=== PATIENT | female | born 1995 | race Caucasian/White ===

== ENCOUNTER → 2024-10-25 13:20 | Outpatient (CLI) | payer OTHER, SELFPAY ==
[2024-10-25 20:26] LABS: HEMOLYSIS 23 (0-50); Iron 96 ug/dL (37-170)
[2024-10-25 20:27] LABS: Add Manual Diff / Slide Review NO; Basophils Absolute Auto 0 /uL (0-100); Basophils Percent Auto 0.6 % (0-2); Eosinophils Absolute Auto 100 /uL (0-450); Eosinophils Percent Auto 1.2 % (2-4); Hemoglobin 14.2 g/dL (12.0-16.0); Lymphocytes Absolute Auto 2100 /uL (1100-4500); Lymphocytes Percent Auto 29.6 % (25-40); Mean Corpuscular HGB Conc 33.8 % (30-36); Mean Corpuscular Hemoglobin 31.9 PG (26-34); Mean Corpuscular Volume 94.4 fL (80-100); Monocytes Absolute Auto 600 /uL (0-900); Monocytes Percent Auto 8.2 % (3-14); Neutrophils Absolute Auto 4300 /uL (1500-7000); Neutrophils Percent Auto 60.4 % (50-75); Platelet Count 261 X10^3/uL (150-400); Red Blood Cell Count 4.45 X10^6/uL (4.0-5.2); Red Cell Distribution Width 12.6 % (11.6-14.8); White Blood Cell Count 7.2 X10^3/uL (4.5-11.0)
[2024-10-25 20:28] LABS: Hemoglobin A1C% w Est Avg Glu 4.8 % (4.0-6.0)
[2024-10-25 20:36] LABS: Alanine Aminotransferase 35 IU/L (<35); Albumin 4.6 g/dL (3.5-5.0); Albumin Globulin Ratio 1.8 (1.0-2.8); Alkaline Phosphatase 72 U/L (38-126); BUN Creatinine Ratio 17.5 (6-22); Bilirubin Total 0.7 mg/dL (0.2-1.3); Blood Urea Nitrogen 14 mg/dL (7-17); Calcium 9.8 mg/dL (8.4-10.2); Carbon Dioxide 27 mmol/L (22-32); Chloride 104 mmol/L (98-107); Estimated Glomerular Filt Rate > 60 mL/min (>60); Globulin 2.6 g/dL (1.7-4.1); Glucose 96 mg/dL (70-100); Sodium 137 mmol/L (137-145); Total Protein 7.2 g/dL (6.3-8.2)
[2024-10-25 20:38] LABS: Percent Iron Saturation 35 % (15-50); Total Iron Binding Capacity 277 ug/dL (265-497); Transferrin 255 mg/dL (206-381)
[2024-10-25 20:43] LABS: Vitamin D 25 Hydroxy (D3) 34.9 ng/mL (30.0-100.0)
[2024-10-25 20:49] LABS: HEMOLYSIS 67 (0-50)
[2024-10-25 20:50] LABS: Aspartate Aminotransferase 40 IU/L (14-36); Potassium 4.4 mmol/L (3.4-5.1)
[2024-10-25 21:01] LABS: Thyroid Stimulating Hormone 1.65 uIU/mL (0.47-4.68)
[2024-10-25 21:08] LABS: Ferritin 27 ng/mL (6-137)
[2024-10-25 21:20] LABS: Vitamin B12 636 pg/mL (239-931)
[2024-10-27 01:09] LABS: HBsAg Screen Negative (Negative); Hepatitis A Antibody IgM Negative (Negative); Hepatitis B Core Antibody IgM Negative (Negative); Hepatitis C Antibody Non Reactive (Non Reactive)
== END ==
PROVIDERS: PCP Family Medicine; Visit Provider Family Medicine
DX: Z00.00 Encounter for general adult medical examination without abnormal findings (principal); Z31.69 Encounter for other general counseling and advice on procreation; G47.419 Narcolepsy without cataplexy; E53.8 Deficiency of other specified B group vitamins; Z13.0 Encounter for screening for diseases of the blood and blood-forming organs and certain disorders involving the immune mechanism; Z13.1 Encounter for screening for diabetes mellitus
CPT/HCPCS: 80053; 80074; 82306; 82607; 82728; 83036; 83540; 83550; 84443; 85025; 86780; 86900; 86901

== ENCOUNTER → 2025-02-11 09:17 | Outpatient (CLI) | payer OTHER, SELFPAY ==
[2025-02-11 19:26] LABS: Alanine Aminotransferase 31 IU/L (<35); Albumin 4.3 g/dL (3.5-5.0); Albumin Globulin Ratio 1.8 (1.0-2.8); Alkaline Phosphatase 83 U/L (38-126); Aspartate Aminotransferase 33 IU/L (14-36); Bilirubin Total 0.6 mg/dL (0.2-1.3); Bilirubin Unconjugated 0.4 mg/dL (0.0-1.1); Cholesterol 192 mg/dL (140-199); Globulin 2.4 g/dL (1.7-4.1); HDL Cholesterol 58 mg/dL (40-60); HEMOLYSIS 20 (0-50); LDL Cholesterol Calculated 116 mg/dL (<100); Total Protein 6.7 g/dL (6.3-8.2); Triglycerides 91 mg/dL (35-150)
[2025-02-11 20:01] LABS: Ferritin 21 ng/mL (6-137)
== END ==
PROVIDERS: PCP Family Medicine; Visit Provider Family Medicine
DX: R79.0 Abnormal level of blood mineral (principal); Z72.820 Sleep deprivation; R79.89 Other specified abnormal findings of blood chemistry
CPT/HCPCS: 80061; 80076; 82728; 86038

== ENCOUNTER → 2025-04-30 13:07 | Outpatient (CLI) | payer OTHER, SELFPAY ==
[2025-04-30 20:19] LABS: Ferritin 25 ng/mL (6-137)
== END ==
PROVIDERS: PCP Family Medicine; Visit Provider Family Medicine
DX: R79.0 Abnormal level of blood mineral (principal); R79.89 Other specified abnormal findings of blood chemistry; E66.01 Morbid (severe) obesity due to excess calories; E78.2 Mixed hyperlipidemia
CPT/HCPCS: 82728

== ENCOUNTER → 2025-07-31 13:04 | Outpatient (CLI) | payer OTHER, SELFPAY ==
[2025-07-31 19:39] LABS: Alanine Aminotransferase 26 IU/L (<35); Albumin 4.5 g/dL (3.5-5.0); Albumin Globulin Ratio 1.7 (1.0-2.8); Alkaline Phosphatase 98 U/L (38-126); Blood Urea Nitrogen 14 mg/dL (7-17); Calcium 9.5 mg/dL (8.4-10.2); Carbon Dioxide 27 mmol/L (22-32); Chloride 103 mmol/L (98-107); Estimated Glomerular Filt Rate > 60 mL/min (>60); Globulin 2.7 g/dL (1.7-4.1); Glucose 109 mg/dL (70-99); HEMOLYSIS 24 (0-50); Potassium 3.9 mmol/L (3.4-5.1); Sodium 137 mmol/L (137-145); Total Protein 7.2 g/dL (6.3-8.2)
[2025-07-31 20:15] LABS: Ferritin 25 ng/mL (6-137)
== END ==
PROVIDERS: PCP Family Medicine; Visit Provider Family Medicine
DX: R79.0 Abnormal level of blood mineral (principal); R79.89 Other specified abnormal findings of blood chemistry
CPT/HCPCS: 80053; 82728